=== PATIENT | male | born 1970 | race Two or more races ===

== ENCOUNTER 2024-12-04 21:03 | Inpatient (IN) | payer BC ==
[~2024-12-04] VITALS: Ht 167.6 cm; Wt 74.8 kg
[2024-12-04 21:55] LABS: PLATELET COUNT (AUTO) 346 K/uL (150-450); RED BLOOD CELL COUNT(AUTO) 5.04 MIL/uL (4.5-6.0); RED CELL DISTRIBUTION WIDTH 13.5 % (11.5-15.0); WHITE BLOOD COUNT (AUTO) 14.3 K/uL (4.3-11.0)
[2024-12-04 22:15] LABS: CALCIUM, SERUM 8.9 mg/dL (8.5-10.1); CREATININE 1.0 mg/dL (0.6-1.3); SODIUM SERUM 141 mmol/L (136-145); UREA NITROGEN, BLOOD 21 mg/dL (7-18)
[2024-12-04 22:20] LABS: ASPARTATE AMINOTRANSFERASE 29 U/L (15-37); NT-PRO BNP 17 pg/mL (0-125); TOTAL PROTEIN, SERUM 8.0 g/dL (6.4-8.2)
[2024-12-04] MEDS ORDERED: ASPIRIN EC 325 MG TABLET.DR PO ONE (22:51)
[2024-12-04] MEDS: ASPIRIN 325 MG TABLET PO ONE (22:52)
[2024-12-05] VITALS (7 sets, daily range): BP systolic 126–172; BP diastolic 93–99; TEMP 98.1–98.4; O2SAT 95–98
[2024-12-05] MEDS ORDERED: ONDANSETRON HCL/PF 4 MG/2 ML VIAL IVP PRN
[2024-12-05] MEDS ORDERED: MORPHINE SULFATE INJ 4 MG/ML DISP.SYRIN IV PRN
[2024-12-05] MEDS ORDERED: MAG HYDROX/AL HYDROX/SIMETH 30 ML UDC PO PRN
[2024-12-05] MEDS ORDERED: NITROGLYCERIN 0.4 MG/TAB BOTTLE SL PRN
[2024-12-05] MEDS ORDERED: MAGNESIUM HYDROXIDE 30 ML UDC PO PRN
[2024-12-05] MEDS ORDERED: ACETAMINOPHEN 325 MG TABLET PO PRN
[2024-12-05] MEDS ORDERED: Z GUARD REMEDY 4 OZ OINT TP PRN
[2024-12-05 06:23] LABS: PLATELET COUNT (AUTO) 309 K/uL (150-450); RED BLOOD CELL COUNT(AUTO) 4.86 MIL/uL (4.5-6.0); RED CELL DISTRIBUTION WIDTH 13.8 % (11.5-15.0); WHITE BLOOD COUNT (AUTO) 11.2 K/uL (4.3-11.0)
[2024-12-05 06:31] LABS: CALCIUM, SERUM 8.9 mg/dL (8.5-10.1); CREATININE 1.2 mg/dL (0.6-1.3); SODIUM SERUM 142 mmol/L (136-145); UREA NITROGEN, BLOOD 18 mg/dL (7-18)
[2024-12-05] MEDS: ASPIRIN 81 MG TAB.CHEW PO SCH (08:16)
[2024-12-05] MEDS: ENOXAPARIN SODIUM 80 MG/0.8 ML DISP.SYRIN SQ SCH (08:16)
[2024-12-05] MEDS: PANTOPRAZOLE 40 MG VIAL IV SCH (08:16)
[2024-12-05] MEDS ORDERED: ASPIRIN 325 MG TABLET PO SCH (09:00)
[2024-12-05] MEDS ORDERED: IOHEXOL-350 100 ML VIAL IV ONE (10:00)
[2024-12-05] MEDS ORDERED: IV NS 0.9% 250 ML IV ONE (10:01)
[2024-12-05] MEDS: NITROGLYCERIN 0.4 MG/TAB BOTTLE SL ONE (10:38)
[2024-12-06 13:08] LABS: *ANA ANTI-CENTROMERE B AB <0.2 AI (0.0-0.9); *ANA ANTI-DNA(DS) AB, QN <1 IU/mL (0-9); *ANA ANTI-JO-1 <0.2 AI (0.0-0.9); *ANA ANTICHROMATIN ANTIBODY <0.2 AI (0.0-0.9); *ANA RNP ANTIBODIES 0.2 AI (0.0-0.9); *ANA SJOGREN'S ANTI-SS-A <0.2 AI (0.0-0.9); *ANA SJOGREN'S ANTI-SS-B <0.2 AI (0.0-0.9); *ANAANTI-SCLERODERMA-70 AB <0.2 AI (0.0-0.9); *ANASMITH AB <0.2 AI (0.0-0.9)
== END 2024-12-05 23:29 | disposition home or self-care (01) | DRG 281 ==
LOC: ER 21:09 → TELE 23:23
PROVIDERS: ADMIT Registered Nurse Psychiatric/Mental Health
DX: I51.4 Myocarditis, unspecified (principal); K51.90 Ulcerative colitis, unspecified, without complications; I21.4 Non-ST elevation (NSTEMI) myocardial infarction; R07.9 Chest pain, unspecified; D72.829 Elevated white blood cell count, unspecified; R79.89 Other specified abnormal findings of blood chemistry
CPT/HCPCS: 36415; 71045-TC; 75574; 80048-TC; 80076-TC; 83880; 84484-TC; 85025-TC; 85652-TC; 86140-TC; 86225; 86235; 93307-TC; G0378; J1650; J2470; J7050; Q9967